=== PATIENT | female | born 1990 | race African-American/Black ===

== ENCOUNTER 2016-11-07 21:57 | Emergency (ER) | payer OTHER ==
[~2016-11-07] VITALS: Ht 162.6 cm; Wt 47.7 kg
[~2016-11-07 21:57] MED LIST: NEOFA GT
[2016-11-07 22:09] VITALS: BP 108/72
== END 2016-11-07 23:07 | disposition left against medical advice (07) ==
LOC: ER 22:58
DX: R00.2 Palpitations (principal); I42.9 Cardiomyopathy, unspecified; Z87.891 Personal history of nicotine dependence
CPT/HCPCS: 99283